=== PATIENT | male | born 1995 | race Hispanic/Latino ===

== ENCOUNTER 2018-05-09 19:36 | Emergency (ER) | payer OTHER ==
[2018-05-09] MEDS ORDERED: METHYLPREDNISOLONE SOD SUCC 40MG/ML 1ML ONE (20:59)
== END 2018-05-09 21:30 | disposition home or self-care (01) ==
LOC: EDH 19:36
DX: J20.9 Acute bronchitis, unspecified (principal)
CPT/HCPCS: 71046; 94640; 96372; 99284; J2920

== ENCOUNTER 2018-11-15 14:31 | Emergency (ER) | payer SELFPAY ==
[2018-11-15 14:57] LABS: BASOPHILS % (AUTO) 0.8 % (0.0-5.0); EOSINOPHILS % (AUTO) 1.4 % (0.0-8.0); HEMATOCRIT 48.1 % (42-54); LYMPHOCYTES % (AUTO) 41.1 % (21.0-51.0); MEAN CORPUSCULAR HEMOGLOBIN 31.4 pg (27.0-33.0); MEAN CORPUSCULAR HGB CONC 33.6 g/dL (32.0-36.0); MEAN CORPUSCULAR VOLUME 93.4 fL (79-99); MONOCYTES % (AUTO) 6.8 % (3.0-13.0); NEUTROPHILS % (AUTO) 49.9 % (40.0-77.0); NUCLEATED RED BLOOD CELLS 0.1 % (0.0-0.19); PLATELET COUNT (AUTO) 223 K/uL (130-400); RED BLOOD CELL COUNT(AUTO) 5.15 MIL/uL (4.50-6.20); RED CELL DISTRIBUTION WIDTH 13.4 % (11.0-15.5); WHITE BLOOD COUNT (AUTO) 7.4 K/uL (4.8-10.8)
[2018-11-15 15:16] LABS: APPEARANCE,URINE Clear (CLEAR); BILIRUBIN,URINE Negative (NEGATIVE); COLOR,URINE Yellow (YELLOW); GLUCOSE, URINE (UA) Negative (NEGATIVE); KETONES,URINE Negative (NEGATIVE); LEUKOCYTE ESTERASE ,URINE Negative (NEGATIVE); NITRATE,URINE Negative (NEGATIVE); OCCULT BLOOD,URINE Negative (NEGATIVE); PROTEIN,URINE Negative (NEGATIVE); UROBILINOGEN,URINE 0.2 mg/dL (0.2-1.0)
[2018-11-15 15:19] LABS: CREATINE KINASE, TOTAL 113 U/L (21-232); MYOGLOBIN 39 ng/mL (10-92); TROPONIN I < 0.04 ng/mL (0.00-0.06)
[2018-11-15 15:24] LABS: AMPHET/METH SCREEN,URINE NEGATIVE (NEGATIVE); BARBITURATE SCREEN, URINE NEGATIVE (NEGATIVE); BENZODIAZEPINES SCREEN,URINE NEGATIVE (NEGATIVE); CANNABINOID SCREEN,URINE NEGATIVE (NEGATIVE); COCAINE SCREEN,URINE NEGATIVE (NEGATIVE); OPIATE SCREEN,URINE NEGATIVE (NEGATIVE); PHENCYCLIDINE SCREEN,URINE NEGATIVE (NEGATIVE)
[2018-11-15 15:33] LABS: CREATININE 0.9 mg/dL (0.5-1.5); POTASSIUM 3.8 mmol/L (3.5-5.1)
[2018-11-15 15:37] LABS: BILIRUBIN,TOTAL 0.6 mg/dL (0.2-1.0); TOTAL PROTEIN, SERUM 7.8 g/dL (6.0-8.3)
== END 2018-11-15 16:44 | disposition home or self-care (01) ==
LOC: EDH 14:31
DX: R07.89 Other chest pain (principal); R06.02 Shortness of breath
CPT/HCPCS: 36415; 80053; 80305; 81003; 82550; 83874; 84484; 85025; 93005

== ENCOUNTER 2018-12-06 04:30 | Emergency (ER) | payer SELFPAY | END 2018-12-06 05:59 | disposition home or self-care (01) | LOC: EDH 04:30 | DX: S06.0X0A Concussion without loss of consciousness, initial encounter (principal); W22.8XXA Striking against or struck by other objects, initial encounter; Y93.89 Activity, other specified; Y92.89 Other specified places as the place of occurrence of the external cause; Y99.8 Other external cause status | CPT/HCPCS: 70450 ==

== ENCOUNTER 2019-04-14 21:03 | Emergency (ER) | payer OTHER ==
[2019-04-14] MEDS ORDERED: KETOROLAC TROMETHAMINE 60 MG/2 ML VIAL ONE (21:36)
== END 2019-04-14 23:26 | disposition home or self-care (01) ==
LOC: EDH 21:03
DX: S20.219A Contusion of unspecified front wall of thorax, initial encounter (principal); X58.XXXA Exposure to other specified factors, initial encounter; Y93.89 Activity, other specified; Y92.89 Other specified places as the place of occurrence of the external cause; Y99.8 Other external cause status
CPT/HCPCS: 71045; 99284; J1885

== ENCOUNTER 2019-08-03 19:37 | Emergency (ER) | payer OTHER ==
[2019-08-03] MEDS ORDERED: IBUPROFEN 600 MG TABLET ONE (19:52)
== END 2019-08-03 20:19 | disposition home or self-care (01) ==
LOC: EDH 19:37
DX: S62.316A Displaced fracture of base of fifth metacarpal bone, right hand, initial encounter for closed fracture (principal); W22.8XXA Striking against or struck by other objects, initial encounter; Y93.89 Activity, other specified; Y92.488 Other paved roadways as the place of occurrence of the external cause; Y99.8 Other external cause status
CPT/HCPCS: 29125; 73130

== ENCOUNTER 2019-09-04 21:39 | Emergency (ER) | payer OTHER ==
[2019-09-04] MEDS ORDERED: ONDANSETRON ODT 4 MG TAB ONE (22:23)
== END 2019-09-04 23:24 | disposition home or self-care (01) ==
LOC: EDH 21:39
DX: R11.2 Nausea with vomiting, unspecified (principal)
CPT/HCPCS: 87804

== ENCOUNTER 2020-02-08 22:32 | Emergency (ER) | payer SELFPAY | END 2020-02-09 00:08 | disposition home or self-care (01) | LOC: EDH 22:32 | DX: S62.91XA Unspecified fracture of right hand, initial encounter for closed fracture (principal); Z72.0 Tobacco use; X58.XXXA Exposure to other specified factors, initial encounter; Y93.89 Activity, other specified; Y92.89 Other specified places as the place of occurrence of the external cause; Y99.8 Other external cause status | CPT/HCPCS: 29125; 73130 ==

== ENCOUNTER 2020-02-16 13:59 | Emergency (ER) | payer SELFPAY | END 2020-02-16 15:32 | disposition home or self-care (01) | LOC: EDH 13:59 | DX: J06.9 Acute upper respiratory infection, unspecified (principal); Z72.0 Tobacco use | CPT/HCPCS: 87804 ==

== ENCOUNTER 2021-10-04 18:02 | Emergency (ER) | payer SELFPAY ==
[~2021-10-04] VITALS: Ht 172.7 cm; Wt 75.3 kg
[2021-10-04 18:03] VITALS: BP 119/67
[2021-10-04] MEDS ORDERED: IBUPROFEN 800 MG TAB PO ONE (18:30)
[2021-10-04] MEDS ORDERED: ACETAMINOPHEN 500 MG TABLET PO ONE (18:30)
[2021-10-04] MEDS ORDERED: IBUP-1552 PO (18:57)
== END 2021-10-04 19:04 | disposition home or self-care (01) ==
LOC: EDH 18:02
DX: S09.90XA Unspecified injury of head, initial encounter (principal); Z79.1 Long term (current) use of non-steroidal anti-inflammatories (NSAID); W22.8XXA Striking against or struck by other objects, initial encounter; Y93.89 Activity, other specified; Y92.89 Other specified places as the place of occurrence of the external cause; Y99.8 Other external cause status

== ENCOUNTER 2022-04-17 00:26 | Emergency (ER) | payer OTHER ==
[~2022-04-17] VITALS: Ht 162.6 cm; Wt 81.6 kg
[~2022-04-17 00:26] MED LIST: CEPH500B PO; IBUP-1552 PO
[2022-04-17] MEDS ORDERED: CEPH500B PO (01:01)
[2022-04-17] MEDS ORDERED: DICL50TA9 PO (01:01)
[2022-04-17 01:13] VITALS: BP 131/79
== END 2022-04-17 01:16 | disposition home or self-care (01) ==
LOC: EDH 00:26
DX: L03.114 Cellulitis of left upper limb (principal); Z79.1 Long term (current) use of non-steroidal anti-inflammatories (NSAID)

== ENCOUNTER 2023-09-01 19:34 | Emergency (ER) | payer OTHER ==
[~2023-09-01] VITALS: Ht 170.2 cm; Wt 87.5 kg
[~2023-09-01 19:34] MED LIST changes: +DICL50TA9 PO
[2023-09-01] MEDS ORDERED: IBUPROFEN 600 MG TABLET PO ONE (20:30)
[2023-09-01 21:18] VITALS: BP 126/72; PULSE 78; RESP 20; O2SAT 98
[2023-09-01] MEDS ORDERED: IBUP-2070 PO (21:20)
[2023-09-01] MEDS ORDERED: CYCL10TA16 PO (21:20)
[2023-09-01] MEDS ORDERED: LIDO1ADH82 TP (21:20)
== END 2023-09-01 21:30 | disposition home or self-care (01) ==
LOC: EDH 19:34
DX: R07.81 Pleurodynia (principal); M94.0 Chondrocostal junction syndrome [Tietze]
CPT/HCPCS: 71045; 71100

== ENCOUNTER 2025-03-14 20:59 | Emergency (ER) | payer SELFPAY ==
[~2025-03-14] VITALS: Ht 170.2 cm; Wt 85.3 kg
[~2025-03-14 20:59] MED LIST changes: +CYCL10TA16 PO; +IBUP-2070 PO; +LIDO1ADH82 TP
[2025-03-14 21:21] LABS: ADD UA MICROSCOPIC YES; APPEARANCE,URINE CLOUDY (CLEAR); BILIRUBIN,URINE NEGATIVE (NEGATIVE); COLOR,URINE LIGHT-YELLOW (YELLOW); GLUCOSE, URINE (UA) NEGATIVE (NEGATIVE); KETONES,URINE NEGATIVE (NEGATIVE); LEUKOCYTE ESTERASE ,URINE 500 Leu/uL (NEGATIVE); NITRATE,URINE NEGATIVE (NEGATIVE); OCCULT BLOOD,URINE SMALL (NEGATIVE); PROTEIN,URINE NEGATIVE (NEGATIVE); UROBILINOGEN,URINE 0.2 mg/dL (0.2-1.0)
[2025-03-14 21:27] LABS: MUCUS,URINE RARE LPF (None Seen); SQUAMOUS EPITHELIAL CELL,UR RARE /HPF (0-2); UNCLASSIFIED CRYSTAL 2 /HPF (None Seen); WBC,URINE 26-50 /HPF (0-1); YEAST,URINE BUDDING MOD /HPF (None Seen)
[2025-03-14] MEDS: cefTRIAXone 1G VIAL IM ONE (21:42)
[2025-03-14] MEDS ORDERED: DOXY100C5 PO (21:50)
--- NOTE | 2025-03-14 21:50 | ERN ---
ED Note History of Present Illness Stated Complaint: C/O DISCHARGE; STATES POSS STD Chief Complaint: Sexually Transmitted Disease Time Seen by MD: 21:01 Time Seen by Midlevel: 21:01 Dictation: The patient is a 29-year-old male with history of seizures as a child who presents to the emergency department with complaints of yellow and green penile discharge onset yesterday. Patient denies any fevers, nausea or vomiting. Denies any wounds or penile pain. Patient reports he has one sexual partner. Allergies: Coded Allergies: No Known Drug Allergies (Unverified Allergy, Unknown, 04/15/19) Home Meds Active Scripts Lidocaine (Lidocaine) 4 % Adh..patch, 1 EACH TP BID PRN for PAIN, #5 ADH.PATCH Prov:FABIÁN WHITMORE 09/01/23 Cyclobenzaprine HCl (Flexeril) 10 Mg Tab, 10 MG PO TID PRN for PAIN, #12 TAB 0 Refills Prov:FABIÁN WHITMORE 09/01/23 Ibuprofen (Ibuprofen) 600 Mg Tablet, 600 MG PO Q6H PRN for PAIN, #20 TAB 0 Refills Prov:FABIÁN WHITMORE 09/01/23 Diclofenac Sodium (Diclofenac Sodium) 50 Mg Tablet.dr, 50 MG PO TIDP PRN for SEVERE PAIN (7-10), #12 TAB 0 Refills Prov:NILDA POLANCO MD 04/17/22 Cephalexin Monohydrate (Keflex) 500 Mg Cap, 500 MG PO TID for 7 Days, #21 CAP 0 Refills Prov:NILDA POLANCO MD 04/17/22 Cephalexin Monohydrate (Keflex) 500 Mg Cap, 500 MG PO TID for 7 Days, #21 CAP Prov:JADE DUONG 12/17/21 Ibuprofen (Ibu) 400 Mg Tablet, 800 MG PO TIDAC, #60 TAB Prov:JADE DUONG 10/04/21 Past Medical History Past Medical History: No Pertinent History Additional Past Medical Hx: HERNIA Surgical History: None Social History: Lives with family, Other RN Note Reviewed/Agreed w/PFSH: Yes Review of System Dictation Constitutional: Negative for fever,chills, and weight loss Eyes: Negative for injury, pain,redness, and discharge ENT: Negative for injury,pain or swelling Cardiovascular: Negative for chest pain, palpitations, and edema Respiratory: Negative for shortness of breath, cough, and wheezing, Abdomen/GI: Negative for abdominal pain, nausea, vomiting, diarrhea, and constipation Back: Negative for injury and pain : Negative for injury, bleeding positive for penile discharge MS/Extremity: Negative for injury and deformity Skin: Negative for rash, and discoloration Neuro: Negative for headache, weakness, numbness, tingling, and seizure Psych: Negative for suicide ideation, homicidal ideation, and hallucinations Initial Vital Sign VS Vital Signs Date Time Temp Pulse Resp B/P (MAP) Pulse Ox O2 Delivery O2 Flow Rate FiO2 03/14/25 21:02 98.1 69 20 118/76 97 Room Air Physical Exam Dictation Vital Signs reviewed General Appearance: Alert, oriented x 3, no acute distress, well developed, nourished. Head and Face: non-traumatic. Eyes: PERRL, pink conjunctivas, eyelid no trauma, anterior chamber with arcus senilis. Ears: Pinnas intact and no signs of trauma or erythema ear canals clear and no discharge TM no erythema Nose: No discharge, no bleeding. Oropharynx: Mouth normal, tongue pink. pharynx clear,no erythema, tonsils no exudates, no abscesses noted, mucous membrane moist Neck: Supple, non-tender, no thyromegaly, no masses, no JVD, no bruits Breast:Deferred Chest:No tenderness, no crepitus, no paradoxical movement, no retractions Lungs:Clear, well-ventilated, symmetric, no rales, no wheezing, no rhonchi, no stridor, good breath sounds bilaterally Heart: Regular rate, regular rhythm, no murmur, no gallops Vascular: no peripheral edema, Abdomen: Soft, positive bowel sounds, nondistended, no guarding, nontender, no rebound, no masses no hepatomegaly, no splenomegaly, no Samuel's sign, no hernias. Rectal: Deferred Genital: Deferred Neurological: Normal speech, motor function intact, sensory function intact Musculoskeletal: Neck nontender, full range of motion, back nontender, full range of motion, Extremities: nontender, full range of motion Skin: Color pink, dry, no turgor, no rash, no lacerations, no abrasions, no contusions. Lymphatic: Deferred Results (Laboratory/Radiology) Laboratory/Radiology Laboratory Tests Test 03/14/25 21:04 Urine Color LIGHT-YELLOW (YELLOW) Urine Appearance CLOUDY (CLEAR) H Urine pH 7.0 (5.0-8.0) Urine Specific [place] 1.011 (1.001-1.031) Urine Protein NEGATIVE mg/dL (NEGATIVE) Urine Glucose (UA) NEGATIVE mg/dL (NEGATIVE) Urine Ketones NEGATIVE mg/dL (NEGATIVE) Urine Occult Blood SMALL (NEGATIVE) H Urine Nitrate NEGATIVE (NEGATIVE) Urine Bilirubin NEGATIVE mg/dL (NEGATIVE) Urine Urobilinogen 0.2 mg/dL (0.2-1.0) Urine Leukocyte Esterase 500 Jonathan/uL (NEGATIVE) H Urine RBC 11-25 /HPF (0-1) H Urine WBC 26-50 /HPF (0-1) H Urine Squamous Epithelial Cells RARE /HPF (0-2) Urine Other Crystals (Auto) 2 /HPF (None Seen) Urine Bacteria None /HPF (None Seen) Urine Yeast MOD /HPF (None Seen) Labs Reviewed?: Yes ED Course ED Course Orders Procedure Category Date Status Time Urinalysis Profile LAB 03/14/25 Complete 21:01 Culture Urine JONATHAN 03/14/25 Logged 21:21 Chlamydia & Gc Pcr JONATHAN 03/14/25 Logged 21:35 Ceftriaxone 1g Vial PHA 03/14/25 In Process (Rocephine 1g Inj) 22:00 Current Medications Medications (Trade) Dose Ordered Sig/Cynthia Route PRN Reason Start Time Stop Time Status Last Admin Dose Admin Ceftriaxone Sodium (ROCEphine 1G INJ) 1 gm ONCE ONCE IM 03/14/25 22:00 03/14/25 22:01 03/14/25 21:42 Vital Signs Date Time Temp Pulse Resp B/P (MAP) Pulse Ox O2 Delivery O2 Flow Rate FiO2 03/14/25 21:02 98.1 69 20 118/76 97 Room Air Medical Decision Making MDM The patient is a 29-year-old male with history of seizures as a child who presents to the emergency department with complaints of yellow and green penile discharge onset yesterday. Patient denies any fevers, nausea or vomiting. Denies any wounds or penile pain. Patient reports he has one sexual partner. Patient will be treated for STD and instructed to follow up with the his primary doctor for further evaluation and treatment. Patient instructed to follow up with cultures. Patient in no acute distress will be discharged to follow up with primary doctor. Differential diagnosis: STD, UTI, Need for hospitalization: Patient does not meet criteria for hospitalization. There are no social concerns with this patient. DX & DISP Disposition: Discharge Departure Impression: Primary Impression: Screen for STD (sexually transmitted disease) Condition: Stable Scripts Doxycycline Hyclate (Doxycycline Hyclate) 100 Mg Capsule 1 CAP PO BID for 7 Days, #14 CAP 0 Refills Prov: EVAN HAYS 03/14/25 Additional Instructions: Is follow up with your primary doctor in 1-2 days. If symptoms worsen please return to ER. Follow up on your urine culture and with the primary doctor for full STD workup FOLLOW-UP WITH PRIMARY CARE PROVIDER IN 1 TO 2 DAYS. TAKE MEDICATIONS DIRECTED HERE IN THE EMERGENCY ROOM. OKAY TO CONTINUE HOME MEDICATIONS UNLESS OTHERWISE DISCUSSED DURING YOUR VISIT IN THE EMERGENCY ROOM TODAY. RETURN TO Y OUR NEAREST EMERGENCY ROOM IF SYMPTOMS WORSEN OR IF THERE IS NO IMPROVEMENT. CALL 911 IF YOU NEED IMMEDIATE ASSISTANCE. TAKE TYLENOL OR MOTRIN [id number] NEEDED AND IF NO CONTRAINDICATIONS ARE PRESENT. INCREASE ORAL HYDRATION. A WOUND CULTURE OR URINE CULTURE WAS ORDERED HERE IN THE EMERGENCY ROOM DEPARTMENT PLEASE FOLLOW-UP WITH PRIMARY CARE PROVIDER AND ADVISE THEM TO GET REPEAT PORTS FROM OUR FACILITY. IF YOU HAD ANY RUBY WRAP/SPLINTS THAT WERE APPLIED HERE, PLEASE DO NOT REMOVE THEM UNTIL YOU SEE YOUR PRIMARY CARE OR SPECIALTY. Referrals: SELF,REFERRAL (PCP) Time of Disposition: 21:47 I have reviewed the case, and I agree with, Diagnosis and Plan EVAN HAYS Mar 14, 2025 21:50
[2025-03-14 22:04] VITALS: BP 124/74; PULSE 69; RESP 18; TEMP 98.1; O2SAT 98
--- NOTE | 2025-03-20 18:38 | NUR ---
UPON REVIEW OF CULTURE RESULTS BY DR. ARCOS, NO FURTHER TX NEEDED.
== END 2025-03-14 22:07 | disposition home or self-care (01) ==
LOC: EDH 20:59
DX: Z11.3 Encounter for screening for infections with a predominantly sexual mode of transmission (principal); Z79.899 Other long term (current) drug therapy
CPT/HCPCS: 99283; 87086; 87491; 87591; 81001; 96372; J0696

== ENCOUNTER 2025-06-28 15:49 | Emergency (ER) | payer SELFPAY ==
[~2025-06-28] VITALS: Ht 172.7 cm; Wt 80.7 kg
[~2025-06-28 15:49] MED LIST changes: +DOXY100C5 PO
[2025-06-28 16:28] LABS: SARS-CoV-2, RNA, NAAT NEGATIVE SARS CoV-2 (NEGATIVE)
[2025-06-28 16:36] LABS: INFLUENZA TYPE A Negative For Type A (NEGATIVE); INFLUENZA TYPE B Negative For Type B (NEGATIVE)
[2025-06-28] MEDS ORDERED: AZIT250T9 PO (17:18)
[2025-06-28] MEDS ORDERED: METH4TAB3 PO (17:18)
--- NOTE | 2025-06-28 17:19 | ERN ---
General Chief Complaint: Congestion Stated Complaint: COUGH CONGESTION HEADACHE Time Seen by : 16:00 Time Seen by Midlevel: 16:00 Source: patient History of Present Illness Initial Comments 29-year-old male presenting to the emergency department with flu-like symptoms. Symptoms consist of a cough, congestion, and a headache. No other symptoms reported. Allergies: Coded Allergies: No Known Drug Allergies (Unverified Allergy, Unknown, 04/15/19) Home Meds Active Scripts Methylprednisolone (Medrol) 4 Mg Tab.ds.pk, 1 TAB PO AD for 6 Days, #21 TAB 0 Refills 6 on day 1 then reduce by one tablet daily until gone Prov:BERTHA LOU 06/28/25 Azithromycin (Azithromycin) 250 Mg Tablet, 1 TAB PO AD for 5 Days, #6 TAB 0 Refills 2 the first day followed by 1 for days 2-5 Prov:BERTHA LOU 06/28/25 Doxycycline Hyclate (Doxycycline Hyclate) 100 Mg Capsule, 1 CAP PO BID for 7 Days, #14 CAP 0 Refills Prov:EVAN HAYS [facility] 03/14/25 Lidocaine (Lidocaine) 4 % Adh..patch, 1 EACH TP BID PRN for PAIN, #5 ADH.PATCH Prov:FABIÁN WHITMORE [facility] 09/01/23 Cyclobenzaprine HCl (Flexeril) 10 Mg Tab, 10 MG PO TID PRN for PAIN, #12 TAB 0 Refills Prov:FABIÁN WHITMORE [facility] 09/01/23 Ibuprofen (Ibuprofen) 600 Mg Tablet, 600 MG PO Q6H PRN for PAIN, #20 TAB 0 Refills Prov:FABIÁN WHITMORE [facility] 09/01/23 Diclofenac Sodium (Diclofenac Sodium) 50 Mg Tablet.dr, 50 MG PO TIDP PRN for SEVERE PAIN (7-10), #12 TAB 0 Refills Prov:NILDA POLANCO MD 04/17/22 Cephalexin Monohydrate (Keflex) 500 Mg Cap, 500 MG PO TID for 7 Days, #21 CAP 0 Refills Prov:NILDA POLANCO MD 04/17/22 Cephalexin Monohydrate (Keflex) 500 Mg Cap, 500 MG PO TID for 7 Days, #21 CAP Prov:JADE DUONG 12/17/21 Ibuprofen (Ibu) 400 Mg Tablet, 800 MG PO TIDAC, #60 TAB Prov:JARRETT DUONGMecca PERKINS 10/04/21 Past Medical History Past Medical History: No Pertinent History, Seizure Medical History Other: HERNIA Past Surgical History: None Social History Social History: Lives with family, Other ROS Dictation CONSTITUTIONAL: Negative except for HPI HEAD/FACE: Negative except for HPI EENT: Negative except for HPI RESPIRATORY: Negative except for HPI GASTROINTESTINAL/ABDOMINAL: Negative except for HPI GENITOURINARY: Negative except for HPI MUSCULOSKELETAL: Negative except for HPI INTEGUMENTARY: Negative except for HPI NEUROLOGICAL/PSYCH: Negative except for HPI HEMATOLOGIC/LYMPHATIC: Negative except for HPI All Systems Negative, Except as noted above. 13 point review of systems assessed and all negative except for above. Physical Exam Physical Exam Dictation Vital Signs reviewed General Appearance: Alert, oriented x 3, no acute distress, well developed, nourished. Head and Face: non-traumatic. Eyes: PERRL, pink conjunctivas, eyelid no trauma, anterior chamber with arcus se nilis. Ears: Pinnas intact and no signs of trauma or erythema ear canals clear and no discharge TM no erythema Nose: No discharge, no bleeding. Oropharynx: Mouth normal, tongue pink, pharynx clear,no erythema, tonsils no exudates, no abscesses noted, mucous membrane moist Neck: Supple, non-tender, no thyromegaly, no masses, no JVD, no bruits Breast:Deferred Chest:No tenderness, no crepitus, no paradoxical movement, no retractions Lungs:Clear, well-ventilated, symmetric, no rales, no wheezing, no rhonchi, no stridor, good breath sounds bilaterally Heart: Regular rate, regular rhythm, no murmur, no gallops Vascular: no peripheral edema, Abdomen: Soft, positive bowel sounds, nondistended, no guarding, nontender, no rebound, no masses no hepatomegaly, no splenomegaly, no Samuel's sign, no hernias. Rectal: Deferred Genital: Deferred Neurological: Normal speech, motor function intact, sensory function intact Musculoskeletal: Neck nontender, full range of motion, back nontender, full range of motion, Extremities: nontender, full range of motion Skin: Color pink, dry, no turgor, no rash, no lacerations, no abrasions, no contusions. Lymphatic: Deferred Results Laboratory and Microbiology Lab and Micro Result Laboratory Tests Test 7/31/25 15:55 Influenza Type A Antigen Negative For Type A Influenza Type B Antigen Negative For Type B SARS-CoV-2, RNA, NAAT NEGATIVE SARS CoV-2 Labs Reviewed?: Yes MDM MDM: Differential diagnosis: Viral illness, upper respiratory infection, strep There are no social concerns with this patient. Prescription drug management Prescriptions will include: Azithromycin, Medrol pack Medical management and examination interpretation discussions were had by me with other qualified healthcare professionals as indicated for the patient's care. ED Course Orders Procedure Category Date Status Time Covid Rna Naat LAB 06/28/25 Complete 15:52 Influenza Type A & B, LAB 06/28/25 Complete Rapid 15:52 Dexamethasone 10mg/Ml PHA 06/28/25 Complete 1ml Vial (Dexameth 17:30 Current Medications Medications (Trade) Dose Ordered Sig/Cynthia Route PRN Reason Start Time Stop Time Status Last Admin Dose Admin Dexamethasone Sodium Phosphate (dexaMETHasone 10MG/ML 1ML VIAL) 10 mg ONCE ONCE IM 06/28/25 17:30 06/28/25 17:31 DC 06/28/25 17:35 Vital Signs Date Time Temp Pulse Resp B/P (MAP) Pulse Ox O2 Delivery O2 Flow Rate FiO2 06/28/25 17:33 98.1 74 18 118/74 98 Room Air* 0 21 06/28/25 16:03 98.1 78 18 112/88 98 Room Air* 0 21 06/28/25 15:50 98.1 71 18 112/88 98 0 DX & DISP Disposition: Discharge Departure Impression: Primary Impression: Upper respiratory infection Condition: Stable Scripts Methylprednisolone (Medrol) 4 Mg Tab.ds.pk 1 TAB PO AD for 6 Days, #21 TAB 0 Refills 6 on day 1 then reduce by one tablet daily until gone Prov: BERTHA LOU 06/28/25 Azithromycin (Azithromycin) 250 Mg Tablet 1 TAB PO AD for 5 Days, #6 TAB 0 Refills 2 the first day followed by 1 for days 2-5 Prov: BERTHA LOU 06/28/25 Referrals: SELF,REFERRAL (PCP) I have reviewed the case, and I agree with, Diagnosis and Plan I performed the substantive portion of the visit. I have reviewed and personally made and approve the management plan that is documented in the note by myself or the MARCO. I acknowledge for responsibility for the patient's management plan. BERTHA LOU Jun 28, 2025 17:18
[2025-06-28 17:33] VITALS: BP 118/74; PULSE 74; RESP 18; TEMP 98.1; O2SAT 98
== END 2025-06-28 17:41 | disposition home or self-care (01) ==
LOC: EDH 15:49
DX: J06.9 Acute upper respiratory infection, unspecified (principal); Z20.822 Contact with and (suspected) exposure to COVID-19; Z79.899 Other long term (current) drug therapy
CPT/HCPCS: 99283; 87635; 87804 ×2; 96372; J1100

== ENCOUNTER 2025-08-06 09:15 | Emergency (ER) | payer SELFPAY ==
[~2025-08-06] VITALS: Ht 170.2 cm; Wt 81.6 kg
[~2025-08-06 09:15] MED LIST changes: +AZIT250T9 PO; +IBUP-1492 PO; -IBUP-2070 PO; +METH4TAB3 PO
[2025-08-06 09:52] LABS: IMMATURE GRANULOCYTE ABSOLUTE 0.04 K/uL (0-1); NUCLEATED RED BLOOD CELLS 0.0 % (0.0-0.19); PLATELET COUNT (AUTO) 297 K/uL (130-400); RED BLOOD CELL COUNT(AUTO) 5.53 MIL/uL (4.50-6.20); RED CELL DISTRIBUTION WIDTH 12.6 % (11.0-15.5); WHITE BLOOD COUNT (AUTO) 12.9 K/uL (4.8-10.8)
[2025-08-06 10:07] LABS: ASPARTATE AMINOTRANSFERASE 22.0 U/L (10-37); CREATINE KINASE, TOTAL 127.0 U/L (21-232); CREATININE 0.8 mg/dL (0.5-1.3); GLOMERULAR FILTR. RATE CALC 121.0 mL/min (>90); GLUCOSE,RANDOM 108.0 mg/dL (70-105); SODIUM SERUM 135.0 mmol/L (136-145); TOTAL PROTEIN, SERUM 7.9 g/dL (6.0-8.3); UREA NITROGEN, BLOOD 9.0 mg/dL (7-18)
[2025-08-06 10:29] LABS: APPEARANCE,URINE CLEAR (CLEAR); GLUCOSE, URINE (UA) NEGATIVE (NEGATIVE); LEUKOCYTE ESTERASE ,URINE NEGATIVE Leu/uL (NEGATIVE); NITRATE,URINE NEGATIVE (NEGATIVE); OCCULT BLOOD,URINE SMALL (NEGATIVE)
[2025-08-06 10:32] LABS: ADD UA MICROSCOPIC YES
[2025-08-06 10:35] LABS: SQUAMOUS EPITHELIAL CELL,UR RARE /HPF (0-2)
[2025-08-06 10:38] LABS: AMPHET/METH SCREEN,URINE NEGATIVE (NEGATIVE); BARBITURATE SCREEN, URINE NEGATIVE (NEGATIVE); CANNABINOID SCREEN,URINE NEGATIVE (NEGATIVE); COCAINE SCREEN,URINE POSITIVE (NEGATIVE)
--- NOTE | 2025-08-06 11:22 | NUR ---
PT STILL IN WAITING ROOM-PENDING ED BED
[2025-08-06] MEDS ORDERED: ONDA-243 PO (11:29)
--- NOTE | 2025-08-06 11:29 | ERN ---
ED Note History of Present Illness Stated Complaint: EPIGASTRIC PAIN Chief Complaint: Abdominal Pain Time Seen by MD: 09:19 Dictation: 1-year-old male presenting to the emergency department with a piece to pain and vomiting. On off over the past few hours reports not feeling well and left work to get evaluated. Allergies: Coded Allergies: No Known Drug Allergies (Unverified Allergy, Unknown, 04/15/19) Home Meds Active Scripts Methylprednisolone (Medrol) 4 Mg Tab.ds.pk, 1 TAB PO AD for 6 Days, #21 TAB 0 Refills 6 on day 1 then reduce by one tablet daily until gone Prov:BERTHA LOU 06/28/25 Azithromycin (Azithromycin) 250 Mg Tablet, 1 TAB PO AD for 5 Days, #6 TAB 0 Refills 2 the first day followed by 1 for days 2-5 Prov:BERTHA LOU 06/28/25 Doxycycline Hyclate (Doxycycline Hyclate) 100 Mg Capsule, 1 CAP PO BID for 7 Days, #14 CAP 0 Refills Prov:EVAN HAYS [facility] 03/14/25 Lidocaine (Lidocaine) 4 % Adh..patch, 1 EACH TP BID PRN for PAIN, #5 ADH.PATCH Prov:FABIÁN WHITMORE [facility] 09/01/23 Cyclobenzaprine HCl (Flexeril) 10 Mg Tab, 10 MG PO TID PRN for PAIN, #12 TAB 0 Refills Prov:FABIÁN WHITMORE [facility] 09/01/23 Ibuprofen (Ibuprofen) 600 Mg Tablet, 600 MG PO Q6H PRN for PAIN, #20 TAB 0 Refills Prov:FABIÁN WHITMORE [facility] 09/01/23 Diclofenac Sodium (Diclofenac Sodium) 50 Mg Tablet.dr, 50 MG PO TIDP PRN for SEVERE PAIN (7-10), #12 TAB 0 Refills Prov:NILDA POLANCO MD 04/17/22 Cephalexin Monohydrate (Keflex) 500 Mg Cap, 500 MG PO TID for 7 Days, #21 CAP 0 Refills Prov:NILDA POLANCO MD 04/17/22 Cephalexin Monohydrate (Keflex) 500 Mg Cap, 500 MG PO TID for 7 Days, #21 CAP Prov:JADE DUONG 12/17/21 Ibuprofen (Ibu) 400 Mg Tablet, 800 MG PO TIDAC, #60 TAB Prov:JADE DUONG 10/04/21 Past Medical History Past Medical History: No Pertinent History, Seizure Additional Past Medical Hx: HERNIA Surgical History: None Social History: Lives with family, Other Review of System Dictation Constitutional: Negative for fever,chills, and weight loss Eyes: Negative for injury, pain,redness, and discharge ENT: Negative for injury,pain or swelling Cardiovascular: Negative for chest pain, palpitations, and edema Respiratory: Negative for shortness of breath, cough, and wheezing, Abdomen/GI: . Per HPI : Negative for injury, bleeding and discharge MS/Extremity: Negative for injury and deformity Skin: Negative for rash, and discoloration Neuro: Negative for headache, weakness, numbness, tingling, and seizure Psych: Negative for suicide ideation, homicidal ideation, and hallucinations Initial Vital Sign VS Vital Signs Date Time Temp Pulse Resp B/P (MAP) Pulse Ox O2 Delivery O2 Flow Rate FiO2 08/06/25 09:16 97.9 78 16 106/65 96 Room Air 0 08/06/25 09:19 21 Physical Exam Dictation General: awake, alert, NAD Head/Face: Normocephalic, atraumatic Eyes: PERRL, EOMI, vision at baseline ENT: oral cavity clear, TMs clear, no signs of infection Neck: Trachea midline, supple, no nuchal rigidity Cardiovascular: RRR, normal S1/S2, No MRGs, no JVD Respiratory: CTAB, no respiratory distress, No rales or wheezes Abdomen: Soft, non-tender, non-distended, normal bowel sounds, no guarding or rebound. Skin: Warm, dry, normal turgor, no rash MS/Extremity: Pulses equal, no cyanosis, neurovascular intact, FROM Neuro: COAx4, GCS 15, strength 5/5, CN 2-12 intact, normal cerebellar exam, normal gait, Psych: Normal behavior, mood, and affect normal Results (Laboratory/Radiology) Laboratory/Radiology Laboratory Tests Test 08/06/25 09:47 08/06/25 10:22 White Blood Count 12.9 K/uL (4.8-10.8) H Red Blood Count 5.53 MIL/uL (4.50-6.20) Hemoglobin 18.1 g/dL (14.0-18.0) H Hematocrit 50.1 % (42-54) Mean Corpuscular Volume 90.6 fL (79-99) Mean Corpuscular Hemoglobin 32.7 pg (27.0-33.0) Mean Corpuscular Hemoglobin Concent 36.1 g/dL (32.0-36.0) H Red Cell Distribution Width 12.6 % (11.0-15.5) Platelet Count 297 K/uL (130-400) Mean Platelet Volume 11.5 fL (7.5-10.5) H Immature Granulocyte % (Auto) 0.3 % (0-1) Neutrophils (%) (Auto) 61.0 % (40.0-77.0) Lymphocytes (%) (Auto) 25.9 % (21.0-51.0) Monocytes (%) (Auto) 7.0 % (3.0-13.0) Eosinophils (%) (Auto) 4.9 % (0.0-8.0) Basophils (%) (Auto) 0.9 % (0.0-5.0) Neutrophils # (Auto) 7.9 K/uL (1.8-7.7) H Lymphocytes # (Auto) 3.4 K/uL (1.0-4.8) Monocytes # (Auto) 0.9 K/uL (0.1-1.0) Eosinophils # (Auto) 0.63 K/uL (0.00-0.70) Basophils # (Auto) 0.11 K/uL (0.00-0.20) Absolute Immature Granulocyte (auto 0.04 K/uL (0-1) Nucleated Red Blood Cells 0.0 % (0.0-0.19) Red Blood Cell Morphology See comments Sodium Level 135 mmol/L (136-145) L Potassium Level 3.9 mmol/L (3.5-5.1) Chloride Level 99 mmol/L (101-111) L Carbon Dioxide Level 33 mmol/L (21-32) H Blood Urea Nitrogen 9 mg/dL (7-18) Creatinine 0.8 mg/dL (0.5-1.3) Glomerular Filtration Rate Calc 121 mL/min (>90) Random Glucose 108 mg/dL (70-105) H Total Calcium 9.0 mg/dL (8.5-10.1) Total Bilirubin 1.1 mg/dL (0.2-1.0) H Direct Bilirubin 0.2 mg/dL (0.0-0.3) Aspartate Amino Transf (AST/SGOT) 22 U/L (10-37) Alanine Aminotransferase (ALT/SGPT) 42 U/L (12-78) Alkaline Phosphatase 90 U/L (50-136) Total Creatine Kinase 127 U/L (21-232) Total Protein 7.9 g/dL (6.0-8.3) Albumin 4.2 g/dL (3.5-5.0) Lipase 29 U/L (16-77) Urine Color YELLOW (YELLOW) Urine Appearance CLEAR (CLEAR) Urine pH 6.0 (5.0-8.0) Urine Specific [place] 1.025 (1.001-1.031) Urine Protein NEGATIVE mg/dL (NEGATIVE) Urine Glucose (UA) NEGATIVE mg/dL (NEGATIVE) Urine Ketones NEGATIVE mg/dL (NEGATIVE) Urine Occult Blood SMALL (NEGATIVE) H Urine Nitrate NEGATIVE (NEGATIVE) Urine Bilirubin NEGATIVE mg/dL (NEGATIVE) Urine Urobilinogen 3 mg/dL (0.2-1.0) H Urine Leukocyte Esterase NEGATIVE Jonathan/uL Urine RBC 11-25 /HPF (0-1) H Urine WBC 6-10 /HPF (0-1) H Urine Squamous Epithelial Cells RARE /HPF (0-2) Urine Bacteria None /HPF (None Seen) Urine Opiates Screen NEGATIVE (NEGATIVE) Urine Barbiturates Screen NEGATIVE (NEGATIVE) Urine Phencyclidine Screen NEGATIVE (NEGATIVE) Urine Amphetamines Screen NEGATIVE (NEGATIVE) Urine Benzodiazepines Screen NEGATIVE (NEGATIVE) Urine Cocaine Screen POSITIVE (NEGATIVE) H Urine Marijuana (THC) Screen NEGATIVE (NEGATIVE) Labs Reviewed?: Yes ED Course ED Course Orders Procedure Category Date Status Time Basic Metabolic Panel LAB 08/06/25 Complete Cbc With Differential LAB 08/06/25 Complete : Hepatic Function Panel LAB 08/06/25 Complete : Drug Screen Urine LAB 08/06/25 Complete Creatine Kinase, Total LAB 08/06/25 Complete Lipase LAB 08/06/25 Complete Urinalysis Profile LAB 08/06/25 Complete 09: Ondansetron Odt 4mg PHA 08/06/25 Complete Tab (Zofran 4mg Odt) 10:30 Dicyclomine Hcl PHA 08/06/25 Complete (Bentyl 20mg Inj) 10:12 Us Abdominal Ruq\Ltd US 08/06/25 Taken 10:12 Culture Urine JONATHAN 08/06/25 Logged 10:37 Current Medications Medications (Trade) Dose Ordered Sig/Cynthia Route PRN Reason Start Time Stop Time Status Last Admin Dose Admin Dicyclomine HCl (Bentyl 20mg Inj) 20 mg ONCE STAT IM 08/06/25 10:12 08/06/25 10:15 DC Ondansetron HCl (zoFRAN 4MG ODT) 4 mg ONCE ONCE SL 08/06/25 10:30 08/06/25 10:31 DC Vital Signs Date Time Temp Pulse Resp B/P (MAP) Pulse Ox O2 Delivery O2 Flow Rate FiO2 08/06/25 09:19 97.9 78 16 106/65 96 Room Air* 0 21 08/06/25 09:16 97.9 78 16 106/65 96 Room Air 0 Medical Decision Making MDM MDM: Differential diagnosis: Rationale: Tests considered and ordered secondary to shared decision making include: Previous outside records reviewed: Old ER visits. Risk of complication and/or morbidity or mortality of patient management: None Medications-Per medication reconciliation Need for hospitalization: Patient does not meet criteria for hospitalization. Need for emergency major/minor surgery: No There are no social concerns with this patient. Prescription drug management Prescriptions will include symptomatic care Patient's prior external medical records from other ER visits were reviewed by me as indicated. Prior testing and results from previous visits were reviewed. Prior tests were taken into account with medical decision making and resource utilization, independent historian/historians were used to obtain complete medical history. I independently interpreted the test that were performed, results were reviewed by me and considered findings on radiology if ordered. Medical management and examination interpretation discussions were had by me with other qualified healthcare professionals as indicated for the patient's care. 29-year-old with acute gastritis cocaine abuse stable exam is stable for discharge and prescriptions given. DX & DISP Disposition: Discharge Departure Impression: Primary Impression: Epigastric pain Condition: Stable Scripts Ondansetron (Ondansetron Odt) 4 Mg Tab.rapdis 1 TAB PO Q6HPRN PRN for nausea/vomiting for 4 Days, #16 TAB 0 Refills Prov: DILIA ANAND MD 08/06/25 Referrals: SELF,REFERRAL (PCP) DILIA ANAND MD Aug 06, 2025 11:29
[2025-08-06] MEDS: DICYCLOMINE 20MG (10MG/ML) AMP IM STA (11:36)
[2025-08-06 11:42] VITALS: BP 114/59; PULSE 77; RESP 16; TEMP 97.9; O2SAT 96
--- NOTE | 2025-08-06 11:53 | HMCIMG ---
EXAM: US Abdomen, Right Upper Quadrant. CLINICAL HISTORY: RUQ TECHNIQUE: Right upper quadrant sonography performed with image documentation. COMPARISON: None provided. FINDINGS: LIVER: Within normal limits in size and echogenicity. No mass. GALLBLADDER: Cholelithiasis. Gallbladder wall thickening and pericholecystic free fluid. COMMON BILE DUCT: No dilation. PANCREAS: The pancreas is obscured by bowel gas. RIGHT KIDNEY: Unremarkable. Normal renal contours. No renal mass or calculus. No hydronephrosis. IMPRESSION: 1. Cholelithiasis with gallbladder wall thickening and pericholecystic fluid, suggestive of acute cholecystitis. /[place]
== END 2025-08-06 11:48 | disposition home or self-care (01) ==
LOC: EDH 09:15
DX: R10.13 Epigastric pain (principal); Z79.899 Other long term (current) drug therapy
CPT/HCPCS: 99285; 76705; 82550; 80076; 80048; 80305; 83690; 85025; 87086; 36415; 96372; 81001; J0500